=== PATIENT | male | born 1990 | race Caucasian/White ===

== ENCOUNTER 2024-10-14 21:25 | Emergency (ER) | payer OTHER ==
[~2024-10-14] VITALS: Ht 190.5 cm; Wt 136.1 kg
[2024-10-14] MEDS ORDERED: diphenhydrAMINE hydrochloride 50 MG/ML VIAL IV ONE (22:10)
[2024-10-14] MEDS ORDERED: Ondansetron Hydrochloride 4 MG/2 ML VIAL IV ONE (22:10)
[2024-10-14] MEDS ORDERED: Ketorolac Tromethamine 30 MG/ML VIAL IV ONE (22:10)
[2024-10-14] MEDS ORDERED: SODIUM CHLORIDE 0.9% 500 ML IV ONE (22:10)
[2024-10-14] MEDS ORDERED: BUPIVACAINE 0.5% 10 ML VIAL SC ONE (23:55)
[2024-10-15] MEDS ORDERED: Dexamethasone Sodium Phospha 20 MG/5 ML VIAL IV ONE (00:25)
[2024-10-15] MEDS ORDERED: REGLAN10 M1 PO (01:22)
[2024-10-15] MEDS ORDERED: MEDROL DOSEPAK4 MG PO (01:22)
[2024-10-15] MEDS ORDERED: Dexamethasone Sodium Phospha 10 MG/1 ML VIAL IV ONE (23:55)
== END 2024-10-15 01:39 | disposition home or self-care (01) ==
LOC: ED 21:25
DX: G43.909 Migraine, unspecified, not intractable, without status migrainosus (principal)

== ENCOUNTER → 2025-10-29 | Outpatient (CLI) | payer OTHER ==
[~2025-10-29] MED LIST: GADOTERATE MEGLUMINE 10 MMOL/20 ML VIAL IV ONE; GADOTERATE MEGLUMINE 5 MMOL/10 ML VIAL IV ONE; MEDROL DOSEPAK4 MG PO; REGLAN10 M1 PO
== END | disposition home or self-care (01) ==
LOC: MRI 15:02
PROVIDERS: ATTEND Nurse Practitioner Family
DX: G40.909 Epilepsy, unspecified, not intractable, without status epilepticus (principal)